=== PATIENT | male | born 1950 | race Caucasian/White ===

== ENCOUNTER 2021-11-20 10:25 | Emergency (ER) | payer MEDICARE, OTHER, MEDICAID | END 2021-11-20 14:00 | disposition home or self-care (01) | LOC: JD.ED 10:25 | DX: U07.1 COVID-19 (principal); E83.42 Hypomagnesemia; I11.0 Hypertensive heart disease with heart failure; I50.9 Heart failure, unspecified; E11.9 Type 2 diabetes mellitus without complications; Z88.8 Allergy status to other drugs, medicaments and biological substances | CPT/HCPCS: 36415; 71045; 71045-26; 80053; 82803; 83735; 85025; 99284 ==

== ENCOUNTER 2022-01-07 04:11 | Inpatient (IN) | payer MEDICARE, MEDICAID ==
[2022-01-07 05:36] LABS: CORONAVIRUS COVID-19 NAA NEGATIVE (NEGATIVE)
[2022-01-07] MEDS ORDERED: Insulin Regular, Human 100 Units/ML 3 ML Vial SUBCUT STA (06:56)
[2022-01-07] MEDS: Sodium Chloride 0.9% 1,000 ML IV SCH ×3 (07:10→20:11)
[2022-01-07] MEDS ORDERED: Sodium Chloride 0.9% 10 ML Syringe FLUSH PRN (07:14)
[2022-01-07] MEDS ORDERED: Iopamidol 755 Mg/ML 100 ML Bottle IVPUSH ONE (07:14)
[2022-01-07] MEDS ORDERED: Sodium Chloride 0.9% 45 ML IV SCH (07:15)
[2022-01-07] MEDS ORDERED: cefTRIAXone 2 GM in Sodium Chloride 0.9% 100 ML IV ONE (13:27)
[2022-01-07] MEDS ORDERED: Aspirin 81 MG Tab.Chew PO ONE (13:33)
[2022-01-07] MEDS ORDERED: FLU Vacc QS2022(65UP)/MF59C/PF 60 MCG/0.5 ML Syringe IM ONE (17:00)
[2022-01-07] MEDS ORDERED: Enoxaparin 30 MG/0.3 ML Syringe SUBCUT ONE (18:30)
[2022-01-07] MEDS ORDERED: Lidocaine 2% 100 MG/5 ML Syringe IVPUSH ONE (19:00)
[2022-01-07] MEDS ORDERED: Piperacillin/Tazobactam 4.5 GM in Sodium Chloride 0.9% 100 ML IV ONE (19:06)
[2022-01-07] MEDS ORDERED: Vancomycin 2 GM in Sodium Chloride 0.9% 500 ML IV ONE (19:30)
[2022-01-07] MEDS ORDERED: Vancomycin 1 GM SDV ONE (19:50)
[2022-01-07] MEDS ORDERED: Amiodarone 150 MG/3 ML SDV IV ONE (20:00)
[2022-01-07] MEDS: Insulin Glargine,Human Rec. Analog 100 Units/ML 3 ML Pen SUBCUT SCH (21:16)
[2022-01-07] MEDS: risperiDONE 1 MG Tab PO SCH (21:17)
[2022-01-07] MEDS: traZODone 50 MG Tab PO SCH (21:17)
[2022-01-07] MEDS: Metoprolol Tartrate 25 MG Tab PO SCH (21:36)
[2022-01-08] MEDS: Piperacillin/Tazobactam 4.5 GM in Sodium Chloride 0.9% 100 ML IV SCH ×3 (02:02→17:07)
[2022-01-08] MEDS: Sodium Chloride 0.9% 1,000 ML IV SCH (02:58)
[2022-01-08] MEDS: VANCOmycin 750 MG/150 ML 150 ML IV SCH ×2 (08:08→09:14)
[2022-01-08] MEDS: Aspirin 325 MG Tab.EC PO SCH (08:10)
[2022-01-08] MEDS: risperiDONE 1 MG Tab PO SCH ×2 (08:10→22:00)
[2022-01-08] MEDS: Metoprolol Tartrate 25 MG Tab PO SCH ×2 (08:10→21:58)
[2022-01-08] MEDS ORDERED: Ondansetron 4 MG/2 ML SDV IV PRN (09:37)
[2022-01-08] MEDS ORDERED: Acetaminophen 325 MG Tab PO PRN (09:37)
[2022-01-08] MEDS: Insulin Lispro 100 Unit/ML 3 ML KwikPen SUBCUT SCH ×3 (11:46→22:01)
[2022-01-08] MEDS ORDERED: oxyCODONE 5 MG Tab PO PRN (11:51)
[2022-01-08] MEDS ORDERED: Morphine 2 MG/ML SYRINGE IVPUSH PRN (11:52)
[2022-01-08] MEDS ORDERED: LORazepam 1 MG Tab PO PRN (11:52)
[2022-01-08] MEDS: Amiodarone 200 MG Tab PO SCH (12:31)
[2022-01-08] MEDS ORDERED: cefTRIAXone 1 GM in Sodium Chloride 0.9% 100 ML IV SCH (14:00)
[2022-01-08] MEDS ORDERED: Enoxaparin 40 MG/0.4 ML Syringe SUBCUT SCH (18:00)
[2022-01-08] MEDS: traZODone 50 MG Tab PO SCH (22:00)
[2022-01-08] MEDS: Insulin Glargine,Human Rec. Analog 100 Units/ML 3 ML Pen SUBCUT SCH (22:01)
[2022-01-09] MEDS: Piperacillin/Tazobactam 4.5 GM in Sodium Chloride 0.9% 100 ML IV SCH ×2 (02:21→09:35)
[2022-01-09] MEDS ORDERED: Enoxaparin 40 MG/0.4 ML Syringe SUBCUT SCH (09:00)
[2022-01-09] MEDS: Insulin Lispro 100 Unit/ML 3 ML KwikPen SUBCUT SCH ×2 (09:31→11:31)
[2022-01-09] MEDS: Metoprolol Tartrate 25 MG Tab PO SCH (09:32)
[2022-01-09] MEDS: risperiDONE 1 MG Tab PO SCH (09:32)
[2022-01-09] MEDS: Aspirin 325 MG Tab.EC PO SCH (09:33)
[2022-01-09] MEDS: Amiodarone 200 MG Tab PO SCH (09:33)
== END 2022-01-09 14:18 | DRG 689 ==
LOC: JD.ED 04:11 → JD.MS 15:15 → JD.ICU 19:20 → JD.MS 01-08 14:13
PROVIDERS: ADMIT Emergency Medicine; ATTEND Pediatrics
DX: R77.8 Other specified abnormalities of plasma proteins (principal); Z66 Do not resuscitate; N39.0 Urinary tract infection, site not specified; I21.4 Non-ST elevation (NSTEMI) myocardial infarction; I44.2 Atrioventricular block, complete; F03.C18 Unspecified dementia, severe, with other behavioral disturbance; I47.20 Ventricular tachycardia, unspecified; E11.9 Type 2 diabetes mellitus without complications; Z51.5 Encounter for palliative care; M19.90 Unspecified osteoarthritis, unspecified site; I27.20 Pulmonary hypertension, unspecified; Z88.8 Allergy status to other drugs, medicaments and biological substances; I25.10 Atherosclerotic heart disease of native coronary artery without angina pectoris; G30.9 Alzheimer's disease, unspecified; F02.80 Dementia in other diseases classified elsewhere, unspecified severity, without behavioral disturbance, psychotic disturbance, mood disturbance, and anxiety; E86.0 Dehydration; I50.9 Heart failure, unspecified; M16.11 Unilateral primary osteoarthritis, right hip; M19.011 Primary osteoarthritis, right shoulder; M19.012 Primary osteoarthritis, left shoulder; M47.812 Spondylosis without myelopathy or radiculopathy, cervical region; N40.1 Benign prostatic hyperplasia with lower urinary tract symptoms; E78.5 Hyperlipidemia, unspecified; I10 Essential (primary) hypertension; Z20.822 Contact with and (suspected) exposure to COVID-19; H54.7 Unspecified visual loss; H91.90 Unspecified hearing loss, unspecified ear; I11.0 Hypertensive heart disease with heart failure; E78.00 Pure hypercholesterolemia, unspecified; K59.00 Constipation, unspecified; N40.0 Benign prostatic hyperplasia without lower urinary tract symptoms; Z86.16 Personal history of COVID-19; Z95.1 Presence of aortocoronary bypass graft; Z86.79 Personal history of other diseases of the circulatory system; Z87.820 Personal history of traumatic brain injury; Z79.82 Long term (current) use of aspirin; Z79.4 Long term (current) use of insulin; Z87.891 Personal history of nicotine dependence; Z79.899 Other long term (current) drug therapy
CPT/HCPCS: 0241U; 36415; 71045; 71045-26; 71275; 71275-26; 73502-26-LT; 73502-26-RT; 73502-LT; 73502-RT; 73700-26-LT; 73700-LT; 80048; 80053; 80202; 81001; 82947; 83605; 83735; 83880; 84484; 85007; 85025; 85027; 85379; 86140; 87040; 87086; 87088; 87186; 87641; 93005; 93306; 94761; 97162-GP; A9270-GY; J0282; J0696; J1650; J1815; J1815-GY; J2270; J2543; J3370; J3490; J7030; J7040; Q9967